=== PATIENT | male | born 1950 | race Caucasian/White ===

== ENCOUNTER 2023-11-14 10:09 | Outpatient (RCR) | payer MEDICARE, BC, SELFPAY | END 2023-11-14 23:59 | disposition home or self-care (01) | LOC: RPT 10:09 | PROVIDERS: ATTENDING PHYSICIAN Orthopaedic Surgery; FAMILY PHYSICIAN Family Medicine | DX: M76.891 Other specified enthesopathies of right lower limb, excluding foot (principal) | CPT/HCPCS: 97110; 97162 ==